=== PATIENT | female | born 1930 | race Two or more races ===

== ENCOUNTER 2018-01-23 23:11 | Emergency (ER) | payer OTHER ==
[~2018-01-23] VITALS: Ht 160 cm; Wt 65.8 kg
[~2018-01-23 23:11] MED LIST: ATACAND16 MG; CRESTOR5 MG; FISH OIL1 CAP; LOVAZA1 G
[2018-01-23] MEDS ORDERED: COZAAR50 MG (23:48)
[2018-01-23] MEDS ORDERED: XARELTO10 MG (23:48)
[2018-01-23] MEDS ORDERED: XARELTO10 MG PO (23:49)
[2018-01-23] MEDS ORDERED: SERTRALINE HCL50 MG (23:49)
[2018-01-23] MEDS ORDERED: ZOLOFT25 MG PO (23:50)
[2018-01-23] MEDS ORDERED: HYDROCHLOROTH12.5 MG (23:51)
[2018-01-23] MEDS ORDERED: EXELON1 EAC1 (23:52)
[2018-01-24] MEDS ORDERED: ZOFRAN ODT4 MG PO (02:40)
== END 2018-01-24 02:33 | disposition home or self-care (01) ==
LOC: ER 23:11
DX: R11.0 Nausea (principal); I10 Essential (primary) hypertension

== ENCOUNTER 2019-01-19 15:55 | Outpatient (CLI) | payer OTHER ==
[~2019-01-19 15:55] MED LIST changes: +COZAAR50 MG; +EXELON1 EAC1; +HYDROCHLOROTH12.5 MG; +SERTRALINE HCL50 MG; +XARELTO10 MG; +XARELTO10 MG PO; +ZOFRAN ODT4 MG PO; +ZOLOFT25 MG PO
== END 2019-01-19 16:13 | disposition home or self-care (01) ==
LOC: NUCLEAR 15:55
DX: I82.729 Chronic embolism and thrombosis of deep veins of unspecified upper extremity (principal); D68.61 Antiphospholipid syndrome

== ENCOUNTER 2019-09-29 16:47 | Emergency (ER) | payer OTHER ==
[~2019-09-29] VITALS: Ht 165.1 cm; Wt 68.0 kg
[2019-09-29] MEDS ORDERED: ZOLOFT100 MG (17:07)
[2019-09-29] MEDS ORDERED: CRESTOR5 MG PO ×2 (17:08→17:09)
[2019-09-29] MEDS ORDERED: ASPIRIN1 GM PO (17:09)
[2019-09-29] MEDS ORDERED: VITAMIN D22000 UNIT (17:10)
[2019-09-29] MEDS ORDERED: NAMENDA10 MG PO (17:10)
[2019-09-29] MEDS ORDERED: CARBIDOPA-LEVO1 EAC4 PO (17:11)
== END 2019-09-29 21:32 | disposition home or self-care (01) ==
LOC: ER 16:47
DX: S01.02XA Laceration with foreign body of scalp, initial encounter (principal); S41.122A Laceration with foreign body of left upper arm, initial encounter; S41.121A Laceration with foreign body of right upper arm, initial encounter; W10.8XXA Fall (on) (from) other stairs and steps, initial encounter; Y93.89 Activity, other specified; Y92.59 Other trade areas as the place of occurrence of the external cause; Y99.8 Other external cause status

== ENCOUNTER 2019-10-22 15:40 | Emergency (ER) | payer OTHER ==
[~2019-10-22] VITALS: Ht 160 cm; Wt 63.5 kg
[~2019-10-22 15:40] MED LIST changes: +ASPIRIN1 GM PO; +CARBIDOPA-LEVO1 EAC4 PO; +CRESTOR5 MG PO; +NAMENDA10 MG PO; +VITAMIN D22000 UNIT; +ZOLOFT100 MG
== END 2019-10-22 19:05 | disposition home or self-care (01) ==
LOC: ER 15:40
DX: I82.4Z3 Acute embolism and thrombosis of unspecified deep veins of distal lower extremity, bilateral (principal)

== ENCOUNTER 2020-04-14 11:04 | Emergency (ER) | payer OTHER ==
[~2020-04-14] VITALS: Ht 162.6 cm; Wt 64.0 kg
[2020-04-14] MEDS ORDERED: XARELTO20 MG PO (11:20)
[2020-04-14] MEDS ORDERED: DUI500 PO (16:00)
== END 2020-04-14 16:06 | disposition home or self-care (01) ==
LOC: ER 11:04
DX: M19.041 Primary osteoarthritis, right hand (principal); M79.641 Pain in right hand